=== PATIENT | male | born 2000 | race African-American/Black ===

== ENCOUNTER 2021-09-06 18:54 | Emergency (ER) | payer OTHER, SELFPAY ==
--- NOTE | ~2021-09-06 | XR_ITS ---
EXAMINATION: XR chest 1V portable DATE: 09/06/2021 19:55 INDICATION: 5 months of hemoptysis TECHNIQUE: frontal view of the chest was obtained. COMPARISON: None FINDINGS: The lungs are clear with no focal airspace opacities, pulmonary edema, pleural effusion or pneumothor ax. The cardiomediastinal silhouette is normal. Visualized bones and soft tissues are unremarkable. IMPRESSION: 1. Normal chest radiograph. Reviewed, dictated and finalized at location A. [employer] PREVENTION PRACTITIONER IMPRESSION: 1. Normal chest radiograph.
--- NOTE | ~2021-09-06 | CT_ITS ---
EXAMINATION: CTA chest PE protocol DATE: 09/06/2021 22:01 INDICATION: Hemoptysis TECHNIQUE: Computed tomography (CT) pulmonary angiogram of the chest was performed with 100 mL Omnipa que-350 intravenous contrast. Additional 3D reconstructions utilizing coronal maximum intensity proje ction (MIP) were performed. Automated exposure control and iterative reconstruction technique were em ployed. The dose-length product was 338.38 mGy-cm. COMPARISON: None FINDINGS: Excellent contrast opacification of the pulmonary arteries. There is mild streak artifact from dense contrast in the superior vena cava and right atrium. Minimal scattered respiratory motion artifact wh ich does not significantly limit evaluation. No pulmonary embolism. 2 mm right upper lobe nodule whic h given size and appearance is almost certainly benign requiring no further follow-up. 4 mm thin tria ngular intrafissural lymph node along the left major fissure. No pneumonia, pulmonary edema, pleural effusion or pneumothorax. Heart size is normal. No pericardial effusion. Thoracic aorta is normal in caliber with no dissection. Visualized upper abdomen and bones are unremarkable. IMPRESSION: 1. No pulmonary embolism or other acute cardiopulmonary disease. Reviewed, dictated and finalized at location A. [employer] MANAGER
[2021-09-06 18:58] VITALS: BP 129/74; PULSE 111; RESP 18; TEMP 36.9; O2SAT 99
--- NOTE | 2021-09-06 19:59 | ED.GENADULT ---
HPI - General Adult General Chief complaint: Unspecified Stated complaint: coughing up blood Time Seen by Provider: 09/06/21 19:55 Source: RN notes reviewed History of Present Illness HPI narrative: Patient presents emergency department from home for hemoptysis. 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 he states he does feel shortness of breath with this he denies any fevers or chills chest pain abdominal pain nausea or vomiting states that every once while he will have drainage on the back of his throat but denies any epistaxis Related Data Allergies Allergy/AdvReac Type Severity Reaction Status Date / Time Penicillins AdvReac Nausea Verified 09/06/21 20:30 Review of Systems Review of Systems: Gen.: Denies fevers or chills ENT: Denies congestion Respiratory: See HPI CV: Denies chest pain or palpitations GI: Denies abdominal pain nausea, emesis or diarrhea Musculoskeletal: Denies back pain or muscle pain Neuro: Denies numbness, tingling, weakness or focal weakness Skin: Denies rash Except as documented, all other systems reviewed and negative PMFSH Past Medical History Medical History (Updated 09/06/21 @ 22:20 by Oleg Garduno DO) Patient denies significant medical history Social History Social History (Updated 09/06/21 @ 20:00 by Oleg Garduno DO) Smoking status: Current every day smoker Exam Narrative: APPEARANCE: No acute distress, nontoxic, resting in bed EYES: EOMI HEENT: Normocephalic, atraumatic, nares patent oral mucosa moist erythema exudate posterior pharynx RESPIRATORY: No respiratory distress Clear to auscultation bilaterally with no rhonchi wheezing or rales. CARDIOVASCULAR: Regular rate and rhythm without murmurs rubs or gallops. ABDOMINAL: Soft, nontender, nondistended, no rebound or guarding MUSCULOSKELETAl: Moves all extremities. No clubbing, cyanosis or edema. NEURO: Awake and alert. Following commands, speech normal, no focal deficits SKIN:: Warm, dry. No rashes lesions or abrasions PSYCHIATRIC: Normal affect/mood, Course Course Emergency Course: Discussed with patient results of workup and diagnosis. Discussed need for follow-up with primary care, proper use of medication, and reasons to return to the emergency department. Patient understands and agrees to current treatment plan Vital Signs Vital signs: Vital Signs Temperature 98.5 F 09/06/21 18:58 Pulse Rate 111 H 09/06/21 18:58 Respiratory Rate 18 09/06/21 18:58 Blood Pressure 129/74 09/06/21 18:58 Pulse Oximetry 99 09/06/21 18:58 Temperature 98.5 F 09/06/21 18:58 Pulse Rate 111 H 09/06/21 18:58 Respiratory Rate 18 09/06/21 18:58 Blood Pressure 129/74 09/06/21 18:58 Pulse Oximetry 99 09/06/21 18:58 Medical Decision Making MDM Narrative Medical decision making narrative: Patient complains of hemoptysis feels more likely patient having drainage of the posterior nasal passage discussed this with the patient CTA of the chest is negative lab work is within normal limits will discharge with follow-up as an outpatient Vital Signs Vital Signs: Vital Signs Temperature 98.5 F 09/06/21 18:58 Pulse Rate 111 H 09/06/21 18:58 Respiratory Rate 18 09/06/21 18:58 Blood Pressure 129/74 09/06/21 18:58 Pulse Oximetry 99 09/06/21 18:58 Temperature 98.5 F 09/06/21 18:58 Pulse Rate 111 H 09/06/21 18:58 Respiratory Rate 18 09/06/21 18:58 Blood Pressure 129/74 09/06/21 18:58 Pulse Oximetry 99 09/06/21 18:58 Lab Data Result diagrams: 09/06/21 20:30 09/06/21 20:30 Labs: Lab Results 09/06/21 09/06/21 09/06/21 Range/Units 20:30 20:30 20:30 WBC 9.9 (4.5-10.0) K/mm3 RBC 5.07 (4.6-6.20) M/mm3 Hgb 12.9 L (14.0-18.0) g/dL Hct 40.6 L (42.0-52.0) % MCV 80.1 (80-100) fl
[2021-09-06 20:37] LABS: Basophils Absolute Auto 0.1 K/mm3 (0.0-0.1); Basophils Percent Auto 0.6 % (0.2-1.2); Eosinophils Absolute Auto 0.1 K/mm3 (0-0.3); Eosinophils Percent Auto 1.2 % (0-4.4); Hematocrit 40.6 % (42.0-52.0); Hemoglobin 12.9 g/dL (14.0-18.0); Immature Granulocyte Absolute 0.02 K/mm3 (0.00-0.031); Immature Granulocyte Percent A 0.2 % (0-0.5); Lymphocytes Percent Auto 20.1 % (18.3-44.2); Mean Corpuscular HGB Conc 31.8 g/dl (32-36); Mean Corpuscular Hemoglobin 25.4 pg (26-34); Mean Corpuscular Volume 80.1 fl (80-100); Mean Platelet Volume 9.7 fl (7.4-10.4); Monocytes Absolute Auto 0.7 K/mm3 (0.1-0.6); Monocytes Percent Auto 6.6 % (2.6-8.5); Neutrophils Absolute Auto 7.1 K/mm3 (1.3-6.7); Neutrophils Percent Auto 71.3 % (45.5-73.1); Platelet Count Result 196 k/mm3 (150-375); Red Blood Count 5.07 M/mm3 (4.6-6.20); Red Cell Distribution Width 13.4 % (11.5-14.5); White Blood Count 9.9 K/mm3 (4.5-10.0)
[2021-09-06 20:47] LABS: Prothrombin Time 12.6 Seconds (11.1-14.7)
[2021-09-06 20:48] LABS: Anion Gap 8 mmol/L (8-16); Blood Urea Nitrogen 9 mg/dL (9-20); Calcium 9.5 mg/dL (8.4-10.2); Carbon Dioxide 27 mmol/L (22-30); Chloride 103 mmol/L (98-107); Estimated CRCL calculation 122 ml/min; Estimated Glomerular Filt Rate > 60; Glucose 127 mg/dL (65-110); Partial Thromboplastin Time 26.7 SECONDS (22.3-36.8); Potassium 3.8 mmol/L (3.4-5.0); Sodium 138 mmol/L (137-145)
[2021-09-06 22:28] VITALS: BP 138/72; PULSE 78; RESP 18; O2SAT 99
== END 2021-09-06 22:29 | disposition home or self-care (01) ==
PROVIDERS: Emergency Provider Emergency Medicine
DX: R04.2 Hemoptysis (principal); F17.200 Nicotine dependence, unspecified, uncomplicated
CPT/HCPCS: 36415; 71045; 71275; 80048; 85025; 85610; 85730; 99284; Q9967

== ENCOUNTER 2024-12-23 09:43 | Emergency (ER) | payer OTHER, SELFPAY ==
[2024-12-23 09:53] VITALS: BP 128/75; PULSE 71; RESP 18; TEMP 36.3; O2SAT 99
--- NOTE | 2024-12-23 10:01 | ED.URI ---
HPI - URI/Sore Throat General Chief Complaint: Upper Respiratory Infection Stated Complaint: cough/ cold symptoms Time Seen by Provider: 12/23/24 09:46 Source: patient Mode of arrival: ambulatory Limitations: no limitations History of Present Illness HPI Narrative: Zohaib is a 24-year-old male patient presenting to the clinic today with complaints of cough, chest congestion, runny nose, and low-grade temperature x1 week. States the highest fever was 100.3? F. He is a smoker. No history of asthma. MD elicited complaint: sore throat and nasal congestion Related Data Allergies Allergy/AdvReac Type Severity Reaction Status Date / Time Penicillins AdvReac Intermediate Nausea Verified 12/23/24 09:48 Review of Systems Review of Systems: Pertinent positives per HPI. Patient denies any fever, chills, rash, headache, visual changes, dizziness, shortness of breath, chest pain, palpitations, nausea, vomiting, diarrhea, constipation, abdominal pain, or any urinary issues. [facility] Past Medical History Medical History (Updated 12/23/24 @ 10:05 by Manpreet Murray APRN) Patient denies significant medical history Social History Social History Smoking status: Current every day smoker Comments At the time of my signature, I reviewed and agree with the nursing past medical, surgical, social, and family history. There is no relevant family history pertinent to the patient complaint. Exam Narrative: General: Well-developed, well nourished, in no apparent distress Head: Normocephalic, atraumatic Eyes: Pupils equally round and reactive to light bilaterally, EOM intact, sclera and conjunctive clear, no discharge, lids normal Ears: TMs intact and clear, ear canals clear, no drainage, grossly hearing normal. Nose: Nares patent, clear nasal discharge, no inflammation, no sinus tenderness. Mouth: Oral pharynx without lesions or masses, good dentition, MMM. Neck: Supple, trachea midline, no enlargement of anterior or posterior cervical nodes, no thyroid masses or goiter palpable. Cardio: Regular rate and rhythm, s1 and s2 normal, no murmur appreciated. Resp: Expiratory wheezing throughout lung urbina no rhonchi, rales, or rubs Course Course Emergency Course: Portions of this record may have been created with voice recognition software. Level of Care: Express Care Visit Vital Signs Vital signs: Vital Signs Temperature 36.3 C L 12/23/24 09:53 Pulse Rate 71 12/23/24 09:53 Respiratory Rate 18 12/23/24 09:53 Blood Pressure 128/75 12/23/24 09:53 Pulse Oximetry 99 12/23/24 09:53 Oxygen Delivery Room Air 12/23/24 09:53 Temperature 36.3 C L 12/23/24 09:53 Pulse Rate 71 12/23/24 09:53 Respiratory Rate 18 12/23/24 09:53 Blood Pressure 128/75 12/23/24 09:53 Pulse Oximetry 99 12/23/24 09:53 Oxygen Delivery Room Air 12/23/24 09:53 Vital signs reviewed MDM - URI/Sore Throat MDM Narrative Medical decision making narrative: At the time of visit patient is resting comfortably on the exam table. Patient appears to be nontoxic. Plan: I suspect patient has bronchitis. Prescription for albuterol inhaler prednisone was pharmacy. Supportive measures were discussed with the patient and they voiced understanding discharge instructions and agrees to treatment plan. Return precautions reviewed Differential Diagnosis Differential diagnosis: Likely upper respiratory infection, otitis media, sinusitis, viral infection, bronchitis, influenza, pharyngitis and other (COVID) Discharge Plan Discharge Clinical Impression: Bronchitis Patient Disposition: Home Condition: Stable Instructions: Antibiotic Form, Acute Bronchitis (ED) Additional Instructions: Take prescription medications only as prescribed-albuterol inhaler and prednisone Increase fluids and stay well hydrated Tylenol/motrin for pain/fever Flonase and OTC antihistamines as directed Vicks vapor rub to open sinuses Sinus rinses for congestion Cepacol spray, cough drops, throat lozenges, warm tea with honey/lemon, gargle salt water to soothe throat BRAT diet for diarrhea Clear liquids x 24 hours then advance as tolerated for nausea/vomiting Go to the ED if you develop a worsening in your condition- high fever not controlled by Tylenol or Motrin, dehydration, weakness, lethargy, shortness of breath, or chest pain. Follow up with your PCP in 3-5 days if symptoms persist. Patient Language: Polish Prescriptions: New prednisone 20 mg tablet 40 mg PO DAILY 5 Days Qty: 10 0RF albuterol sulfate 90 mcg/actuation HFA aerosol inhaler 2 puff inhalation Q4-6H PRN (Reason: shortness of breath or wheezing) 30 Days Qty: 8.5 0RF Follow-up/Referrals: PHYSICIAN,RESIDENTIAL THERAPIST [Primary Care Provider] - Stand Alone Forms: Work/School Release IP Time of Disposition: 10:05 Quality NIHSS Nursing Documentation ED NIHSS nursing documentation: reviewed/agree
--- OUTSIDE RECORDS SUMMARY | 2024-12-23 10:02 | XMS_ITS | Clinical Summary ---
Author Organization [facility] Address [address] [place] [address] Care Team Providers Care Gluer Name Role Phone Unavailable Primary Care Provider Unavailabl e Source Comments [facility],non-owned Affiliates and Associated Physician Practices is amultiple site organization consisting of ambulatory clinics and hospital sitesin [place], [place], [place] and [place]. This disclosure is being madepursuant to the Care Everywhere program and may not contain all information available regarding this patient. Last updated 18.[facility] [employer] Allergies Active Allergy Reactions Criticality Noted Date Comments Penicillins Rash Medium 08/18/2016 Pinpoint rash--when 5 yrs old Medications * Be aware that medications may not be up to date on this document. Alwaysverify current medications with the patient. montelukast (SINGULAIR) 10 MG tablet Take 10 mg by mouth at bedtime Active Fluticasone Propionate HFA (FLOVENT HFA IN) Inhale 2 Puffs by mouth 2 times daily Active FLUoxetine (PROZAC) 10 MG capsule Take 10 mg by mouth once daily Active omeprazole EC (PRILOSEC OTC) 20 MG tablet Take 1 Tab by mouth 2 times daily,before breakfast and supper 60 Tab 5 7 Active sertraline (ZOLOFT) 50 MG tablet 7 Active lactase (LACTAID) 3000 UNITS tablet Take 1 Tab by mouth as needed for Other 100 Tab 3 7 Active Active Problems Problem Noted Date Diagnosed Date Abdominal pain 08/18/2016 Asthma 08/18/2016 Lactose intolerance 08/18/2016 Anxiety 08/18/2016 Social History Tobacco Use Types Packs/Day Years Used Date Smoking Tobacco: Never Assessed Sex and Gender Information Value Date Recorded Sex Assigned at Not on file Legal 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 Gender Identity Not on file Sexual Orientation Not on file Last Filed Vital Signs Vital Sign Reading Time Taken Comments Blood Pressure 108/64 10/27/2016 9:12 AM CDT Pulse - - Temperature - - Respiratory Rate - - Oxygen Saturation - - Inhaled Oxygen Concentration - - Weight 67 kg (147 lb 11.3 oz) 10/27/2016 9:12 AM CDT Height 176.6 cm (5' 9.53) 10/27/2016 9:12 AM CD T Body Mass Index 21.48 10/27/2016 9:12 AM CDT Plan of Treatment Health Maintenance Due Date Last Done Comments HIV SCREENING 2016 HPV VACCINE (1 - Male 3-dose series) 2016 MENINGOCOCCAL (Group B) VACC INE SHARED DECISION-MAKING (1 of 2 - Standard) 2017 HEPATITIS C SCREENING 04/18/2019 DTAP/TDAP/TD VACCINES (1 - Tdap) 2020 HEPATITIS B VACCINE (1 of 3 - 19+ 3-dose series) 2020 COVID-19 VACCINE (1 - 2023-2 5 season) 2024 DEPRESSION SCREENING 07/23/2024 INFLUENZA VACCINE (Season Ended) 2025 ZOSTER VACCINE (1 of 2) 2051 HIB VACCINE Aged Out No longer eligi ble based on patient's age to complete this topic MENINGOCOCCAL GROUPS A/C/Y/W VACCINE Aged Out No longer eligible b ased on patient's age to complete this topic PNEUMOCOCCAL VACCINE Aged Out No long er eligible based on patient's age to complete this topic Insurance [facility]
== END 2024-12-23 10:08 | disposition home or self-care (01) ==
PROVIDERS: Emergency Provider Nurse Practitioner Family; Referring Provider Emergency Medicine
DX: J40 Bronchitis, not specified as acute or chronic (principal); F17.200 Nicotine dependence, unspecified, uncomplicated
CPT/HCPCS: 99213; G0463